=== PATIENT | male | born 1975 | race African-American/Black ===

== ENCOUNTER 2017-05-02 12:48 | Emergency (ER) | payer MEDICAID ==
[2017-05-02 12:57] VITALS: BP 140/83
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
== END 2017-05-02 13:22 | disposition home or self-care (01) ==
LOC: UCEAST 12:48
DX: K04.7 Periapical abscess without sinus (principal)
CPT/HCPCS: 99212; G0463

== ENCOUNTER 2017-05-08 12:52 | Emergency (ER) | payer MEDICAID ==
[2017-05-08] MEDS ORDERED: Ketorolac INJ* 30 MG/ML 1 ML VIAL IM ONE (13:46)
--- NOTE | 2017-05-08 13:52 | ED ---
Throat Pain/Nasal Congestion - HPI Summary HPI Summary: 41 male presents to ED with complaints of right lower dental pain that has been ongoing for the past couple of weeks however worsened over the past few days. Patient is supposed to have a tooth extraction this coming sunday. is currently on antibiotics just started, yesterday, amoxicillin. took extra strength tylenol that helps with the pain for a short period however it returns. last took tylenol this am. states the pain gets so bad he vomits and cant sleep. no other complaints, medications or PMHx. Denies fever/chills, lethargy, and weakness. - History of Current Complaint Chief Complaint: EDDentalPain Time Seen by Provider: 05/08/17 13:04 Hx Obtained From: Patient Onset/Duration: Sudden Onset, Lasting Weeks, Still Present, Worse Since Severity: Moderate Cough: None - Allergies/Home Medications Allergies/Adverse Reactions: Allergies Allergy/AdvReac Type Severity Reaction Status Date / Time No Known Allergies Allergy Verified 05/02/17 12:57 PMH/Surg Hx/FS Hx/Imm Hx Endocrine/Hematology History: Denies: Hx Diabetes Cardiovascular History: Denies: Hx Hypertension Respiratory History: Denies: Hx Asthma - Surgical History Surgery Procedure, Year, and Place: denies - Immunization History Immunizations Up to Date: Yes Infectious Disease History: No Infectious Disease History: Denies: Traveled Outside the [place] in Last 30 Days - Family History Known Family History: Negative: Hypertension - Social History Alcohol Use: Daily Alcohol Amount: 4-5 beers/daily Substance Use Type: Reports: None Smoking Status (MU): Heavy Every Day Tobacco Smoker Review of Systems Constitutional: Negative Positive: Dental Pain Cardiovascular: Negative Respiratory: Negative Positive: Headache All Other Systems Reviewed And Are Negative: Yes Physical Exam Triage Information Reviewed: Yes Vital Signs On Initial Exam: Initial Vitals Temp Pulse Resp BP Pulse Ox 97.9 F 79 18 144/86 99 05/08/17 12:54 05/08/17 12:54 05/08/17 12:54 05/08/17 12:54 05/08/17 12:54 Vital Signs Reviewed: Yes Appearance: Positive: Well-Appearing, No Pain Distress, Well-Nourished Skin: Positive: Warm, Skin Color Reflects Adequate Perfusion, Dry. Negative: Cold, Numb, Cyanosis @, Pale, Erythema @ Head/Face: Positive: Normal Head/Face Inspection Eyes: Positive: Conjunctiva Clear ENT: Positive: Normal ENT inspection, Hearing grossly normal, Pharynx normal, TMs normal, Dental tenderness - right lower #1-2, Uvula midline - no sign of peritonsillar abscess or tooth abscess was appreciated. Negative: Nasal congestion, Nasal drainage, Tonsillar swelling, Tonsillar exudate Dental: Positive: Gross Decay/Caries @, Dental Fracture @ - right lower no erythema drainage or palpable abscees, TTP, Cervical Lymphadenopathy. Negative : Abscess @ Neck: Positive: Supple, Nontender Respiratory/Lung Sounds: Positive: Clear to Auscultation, Breath Sounds Present. Negative: Decreased Breath Sounds, Rales, Rhonchi, Wheezes Cardiovascular: Positive: Normal, RRR, Pulses are Symmetrical in both Upper and Lower Extremities. Negative: Murmur, Rub Musculoskeletal: Positive: Normal Neurological: Positive: Normal Diagnostics - Vital Signs Vital Signs Temp Pulse Resp BP Pulse Ox 05/08/17 12:54 97.9 F 79 18 144/86 99 - Laboratory Lab Statement: Any lab studies that have been ordered have been reviewed, and results considered in the medical decision making process. EENT Course/Dx - Course Course Of Treatment: continue already presribed antibiotics. given toradol for pain. will give naproxen to take at home tomorrow. fluids, good oral hygiene, salt water gargles topical anesthetics (orajel). normal vitals and exam otherwise. has extraction schedule sunday with surgeon. no other concerns. aware of worsening signs and symptoms to watch out for. - Differential Diagnoses Differential Diagnoses: Dental Abscess, Dental Caries, Fractured Tooth - Diagnoses Provider Diagnoses: Pain, dental, Dental infection Discharge - Discharge Plan Condition: Good Disposition: HOME Prescriptions: Naproxen TAB* [Naprosyn 375 mg TAB*] 375 mg PO Q8H PRN #20 tab PRN Reason: Pain Patient Education Materials: Dental Abscess (ED), Toothache (ED) Referrals: No Primary Care Phys,NOPCP [Primary Care Provider] - Additional Instructions: continue taking amoxicillin as prescribed. do not miss a dose. take prescribed medication as directed, starting TOMORROW for pain and inflammation. take with food. you already had enough for today's dose. recommend warm compresses and salt water gargles. topical anesthetic agent, apply to area of pain. follow up with dentist, as scheduled on sunday. any new or worsening symptoms please seek medical attention promptly, as discussed.
[2017-05-08 14:19] VITALS: BP 126/87
== END 2017-05-08 14:17 | disposition home or self-care (01) ==
LOC: ED 12:52
DX: K04.7 Periapical abscess without sinus (principal); K08.89 Other specified disorders of teeth and supporting structures
CPT/HCPCS: 96372; 99281; J1885

== ENCOUNTER 2017-08-12 19:53 | Emergency (ER) | payer MEDICAID ==
[2017-08-12] MEDS ORDERED: KETAMINE HCL* 50 MG/ML 10 ML VIAL ONE ×2 (20:23→22:53)
[2017-08-12 21:00] LABS: ABS Basophils 0.1 10^3/ul (0-0.2); ABS Eosinophils 0.1 10^3/ul (0-0.6); ABS Lymphocytes 2.5 10^3/ul (1.0-4.8); ABS Monocytes 0.2 10^3/ul (0-0.8); ABS Neutrophils 2.3 10^3/ul (1.5-7.7); ABS Nucleated RBC 0 10^3/ul; Eosinophil % 1.9 % (0-6); Hematocrit 44 % (42-52); Hemoglobin 15.1 g/dl (14.0-18.0); Lymphocyte % 48.3 % (25-47); Mean Corpuscular HGB Conc 34 g/dl (31-36); Mean Corpuscular Hemoglobin 33 pg (27-31); Mean Corpuscular Volume 96 fL (80-94); Mean Platelet Volume 9.1 um3 (7.4-10.4); Nucleated Red Blood Cells % 0.1; Platelet Count 207 10^3/ul (150-450); Red Blood Count 4.57 10^6/ul (4.00-5.40); Red Cell Distribution Width 14 % (10.5-15); White Blood Count 5.3 10^3/ul (3.5-10.8)
[2017-08-12 23:14] LABS: Urine Red Blood Cell Absent (Absent); Urine White Blood Cell Absent (Absent)
[2017-08-12 23:23] LABS: Urine Appearance Turbid; Urine Blood 2+ (Negative); Urine Color Yellow; Urine Ketones Trace (Negative); Urine Protein Negative (Negative); Urine Urobilinogen Negative (Negative)
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
[2017-08-13 09:19] VITALS: BP 134/79
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
== END 2017-08-13 09:23 | disposition home or self-care (01) ==
LOC: ED 19:53
DX: F10.10 Alcohol abuse, uncomplicated (principal); Y90.8 Blood alcohol level of 240 mg/100 ml or more; R45.850 Homicidal ideations; F19.14 Other psychoactive substance abuse with psychoactive substance-induced mood disorder; F17.200 Nicotine dependence, unspecified, uncomplicated
CPT/HCPCS: 36415; 80053; 80307; 80320; 80329; 81003; 81015; 84443; 85025; 93005; 99283; G0480